=== PATIENT | female | born 1955 | race Two or more races ===

== ENCOUNTER 2018-04-01 09:09 | Outpatient (CLI) | payer SELFPAY ==
[2018-04-01 10:50] LABS: ALBUMIN 3.7 g/dL (3.4-5.0); BILIRUBIN,TOTAL 0.6 mg/dL (0.2-1.0); CALCIUM, SERUM 9.3 mg/dL (8.5-10.1); CREATININE 0.6 mg/dL (0.6-1.3); POTASSIUM 3.8 mmol/L (3.5-5.1); TOTAL PROTEIN, SERUM 7.3 g/dL (6.4-8.2)
== END 2018-04-01 23:59 | disposition home or self-care (01) ==
LOC: LAB 09:09
DX: E11.65 Type 2 diabetes mellitus with hyperglycemia (principal)
CPT/HCPCS: 36415; 80053-TC; 80061-TC